=== PATIENT | female | born 1950 | race Caucasian/White ===

== ENCOUNTER 2023-04-09 16:58 | Emergency (ER) | payer OTHER ==
[2023-04-09 17:11] VITALS: BP 136/92; PULSE 73; RESP 18; TEMP 98.2; BMI 17.2
[2023-04-09] MEDS ORDERED: SODIUM CHLORIDE 1,000 ML IV ONE (17:36)
[2023-04-09] MEDS ORDERED: PANTOPRAZOLE SODIUM 40 MG VIAL ONE (17:47)
[2023-04-09] MEDS ORDERED: ACETAMINOPHEN INJECTION 100 ML IVPB ONE (17:48)
[2023-04-09 17:56] LABS: HEMATOCRIT 41.8 % (32.4-45.2); HEMOGLOBIN 14.1 G/dL (10.7-15.3); MCH 34.4 pg (25.7-33.7); MCHC 33.6 g/dl (32.0-36.0); MEAN CELL VOLUME 102.2 fl (80-96); MEAN PLT VOLUME 7.6 fl (7.5-11.1); PLATELET COUNT 393.6 10^3/uL (134-434); RBC 4.09 10^6/uL (3.60-5.2); RDW 12.7 % (11.6-15.6); WHITE BLOOD COUNT 12.5 10^3/uL (4.0-10.8)
[2023-04-09 18:06] LABS: BLOOD UREA NITROGEN 9.2 mg/dl (7-18); CALCIUM 9.7 mg/dl (8.5-10.1); CREATININE 0.7 mg/dl (0.6-1.3); SGOT/AST 28.7 U/L (15-37); SGPT/ALT 5.8 U/L (7-52); TOT PROT 6.8 g/dl (6.4-8.2)
[2023-04-09 18:20] LABS: ANISOCYTOSIS 1+; MACROCYTOSIS 1+
[2023-04-09 18:21] LABS: PLATELET ESTIMATE ADEQUATE
[2023-04-09 19:38] LABS: BILIRUBIN,DIRECT 0.1 mg/dL (0.0-0.2)
[2023-04-09 19:40] LABS: BILIRUBIN,TOTAL 0.3 mg/dL (0.2-1)
[2023-04-09] MEDS ORDERED: MAGNESIUM OXIDE 400 MG TABLET (FP) PO ONE (21:10)
[2023-04-09] MEDS ORDERED: metroNIDAZOLE 500 MG TABLET PO ONE (21:26)
[2023-04-09] MEDS ORDERED: metroNIDAZOLE 250 MG TABLET ONE (21:32)
== END 2023-04-09 21:43 | disposition home or self-care (01) ==
LOC: FER 16:58
PROC: 3E0337Z Introduction of Electrolytic and Water Balance Substance into Peripheral Vein, Percutaneous Approach (ICD-10-PCS; principal; 2023-04-09)
DX: R14.0 Abdominal distension (gaseous) (principal); R10.84 Generalized abdominal pain; R11.10 Vomiting, unspecified; R19.7 Diarrhea, unspecified
CPT/HCPCS: 36415; 74177-TC; 80053; 81003; 82248; 83690; 83735; 85025; 99285-25; Q9967

== ENCOUNTER 2024-01-02 14:12 | Inpatient (IN) | payer OTHER ==
[2024-01-02] MEDS ORDERED: ACETAMINOPHEN INJECTION 100 ML IVPB ONE ×2 (15:09→20:31)
[2024-01-02] MEDS: ACETAMINOPHEN 1000 MG/100 ML BAG IVPB ONE ×2 (15:21→20:36)
[2024-01-02] MEDS: SODIUM CHLORIDE 0.9% 500 ML INFUS.BAG IV ONE (15:21)
[2024-01-02 15:39] LABS: HEMATOCRIT 36.7 % (32.4-45.2); MCH 32.4 pg (25.7-33.7); MCHC 32.6 g/dl (32.0-36.0); MEAN CELL VOLUME 99.4 fl (80-96); PLATELET COUNT 453.6 10^3/uL (134-434); RBC 3.69 10^6/uL (3.60-5.2); WHITE BLOOD COUNT 19.6 10^3/uL (4.0-10.8)
[2024-01-02 15:45] LABS: PLATELET ESTIMATE SLT INCREASE
[2024-01-02 15:50] LABS: ALBUMIN 3.2 g/dl (3.4-5.0); BILIRUBIN,TOTAL 0.3 mg/dl (0.2-1); CALCIUM 9.3 mg/dl (8.5-10.1); CREATININE 0.6 mg/dl (0.6-1.3); POTASSIUM 4.3 mmol/L (3.5-5.1); TOT PROT 6.1 g/dl (6.4-8.2)
[2024-01-02] MEDS ORDERED: PIPERACILLIN/TAZOBACTAM 3.375 GM VIAL IVPB ONE (17:56)
[2024-01-02 17:59] LABS: INR 1.09 (0.83-1.09); PROTHROMBIN TIME (PATIENT) 12.4 SEC (9.7-13.0)
[2024-01-02 18:02] LABS: ACTIVATED PTT 27.1 SECONDS (25.2-36.5)
[2024-01-02] MEDS: PIPERACILLIN/TAZOB 3.375 GM 3.375 GM in DEXTROSE 5%-WATER - 50 ML IVPB ONE (18:18)
[2024-01-02] MEDS: LACTATED RINGERS SOLUTION 1,000 ML/1,000 ML INFUS.BAG IV SCH (18:18)
[2024-01-02] MEDS ORDERED: morphine SULFATE 4 MG/ML VIAL ONE (19:14)
[2024-01-02] MEDS: morphine CARPU-JECT 2 MG/1 ML DISP.SYRIN IVPUSH ONE ×2 (19:21→19:34)
[2024-01-03] MEDS: ACETAMINOPHEN 1000 MG/100 ML BAG IVPB SCH (00:15)
[2024-01-03 01:48] VITALS: BMI 16.7
[2024-01-03] MEDS ORDERED: ACETAMINOPHEN 325 MG TABLET (FP) PO PRN (02:06)
[2024-01-03] MEDS: LACTATED RINGERS SOLUTION 1,000 ML/1,000 ML INFUS.BAG IV SCH (02:19)
[2024-01-03] MEDS: morphine SULFATE 4 MG/ML VIAL IVPUSH ONE (02:58)
[2024-01-03] MEDS: PIPERACILLIN/TAZOB 3.375 GM 3.375 GM in DEXTROSE 5%-WATER - 50 ML IVPB SCH ×2 (03:25→18:02)
[2024-01-03] MEDS ORDERED: ACETAMINOPHEN 1000 MG/100 ML BAG IVPB PRN ×2 (05:52→11:16)
[2024-01-03] MEDS ORDERED: ONDANSETRON 4 MG/2 ML VIAL IVPUSH PRN (05:53)
[2024-01-03 09:07] LABS: HEMATOCRIT 37.9 % (32.4-45.2); MCH 33.4 pg (25.7-33.7); MCHC 34.3 g/dl (32.0-36.0); MEAN CELL VOLUME 97.6 fl (80-96); MEAN PLT VOLUME 8.3 fl (7.5-11.1); PLATELET COUNT 475 10^3/uL (134-434); RBC 3.88 M/mm3 (3.60-5.2); RDW 11.9 % (11.6-15.6); WHITE BLOOD COUNT 10.7 K/mm3 (4.0-10.0)
[2024-01-03 09:16] LABS: POTASSIUM 4.2 mmol/L (3.5-5.1)
[2024-01-03 09:20] LABS: CALCIUM 8.8 mg/dL (8.5-10.1)
[2024-01-03 09:21] LABS: MAGNESIUM 1.4 mg/dL (1.8-2.4)
[2024-01-03 09:24] LABS: CREATININE 1.2 mg/dL (0.55-1.3)
[2024-01-03 09:25] LABS: TOT PROT 4.9 g/dl (6.4-8.2)
[2024-01-03 09:26] LABS: BILIRUBIN,TOTAL 0.5 mg/dL (0.2-1)
[2024-01-03] MEDS ORDERED: FENTANYL CITRATE/PF 50 MCG/ML VIAL ONE (10:28)
[2024-01-03] MEDS ORDERED: MIDAZOLAM HCL 2 MG/2 ML SINGLE DOSE VIAL ONE (10:28)
[2024-01-03] MEDS: MAGNESIUM 2GM/50ML STERILE WATER IVPB IVPB ONE (13:21)
[2024-01-03] MEDS: SODIUM CHLORIDE 1,000 ML IV STA (14:06)
[2024-01-03] MEDS: SODIUM CHLORIDE 500 ML IV STA (16:09)
[2024-01-04 08:49] LABS: HEMATOCRIT 33.2 % (32.4-45.2); HEMOGLOBIN 11.3 GM/dL (10.7-15.3); MCH 32.6 pg (25.7-33.7); MCHC 33.9 g/dl (32.0-36.0); MEAN CELL VOLUME 96.3 fl (80-96); MEAN PLT VOLUME 8.3 fl (7.5-11.1); PLATELET COUNT 386 10^3/uL (134-434); RBC 3.45 M/mm3 (3.60-5.2); RDW 12.1 % (11.6-15.6)
[2024-01-04 08:54] LABS: WHITE BLOOD COUNT 31.5 K/mm3 (4.0-10.0)
[2024-01-04 09:09] LABS: CHLORIDE 99 mmol/L (98-107); POTASSIUM 4.3 mmol/L (3.5-5.1); SODIUM 136 mmol/L (136-145)
[2024-01-04 09:11] LABS: CHLORIDE 100 mmol/L (98-107); POTASSIUM 4.3 mmol/L (3.5-5.1); SODIUM 136 mmol/L (136-145)
[2024-01-04 09:26] LABS: CALCIUM 7.6 mg/dL (8.5-10.1)
[2024-01-04 09:27] LABS: ANION GAP 12 mmol/L (4-13); BLOOD UREA NITROGEN 29.5 mg/dL (7-18); CO2 25 mmol/L (21-32)
[2024-01-04 09:30] LABS: ANION GAP 11 mmol/L (4-13); BLOOD UREA NITROGEN 28.2 mg/dL (7-18); CALCIUM 7.7 mg/dL (8.5-10.1); CO2 25 mmol/L (21-32); CREATININE 1.1 mg/dL (0.55-1.3); MAGNESIUM 1.9 mg/dL (1.8-2.4)
[2024-01-04 09:31] LABS: GLUCOSE,RANDOM 49 mg/dL (74-106)
[2024-01-04 09:33] LABS: CREATININE 1.1 mg/dL (0.55-1.3); PHOSPHOROUS 6.5 mg/dL (2.5-4.9); SGOT/AST 49 U/L (15-37); SGPT/ALT 25 U/L (13-61)
[2024-01-04 09:34] LABS: BILIRUBIN,TOTAL 0.4 mg/dL (0.2-1); TOT PROT 4.2 g/dl (6.4-8.2)
[2024-01-04 09:36] LABS: ALK PHOS 76 U/L (45-117)
[2024-01-04 09:59] LABS: ALBUMIN 1.6 g/dl (3.4-5.0); GLUCOSE,RANDOM 44 mg/dL (74-106)
[2024-01-04 10:10] LABS: ANISOCYTOSIS 0; HELMET CELLS 0; HOWELL-JOLLY BODIES 0; MACROCYTOSIS 0; OVALOCYTE 0; ROULEAU 0; SICKELED CELLS 0; TARGET CELLS 0; TEAR DROP CELLS 0; TOXIC GRANULATION 0
[2024-01-04] MEDS ORDERED: PIPERACILLIN/TAZOB 3.375 GM 3.375 GM in DEXTROSE 5%-WATER - 50 ML IVPB SCH (11:30)
[2024-01-04] MEDS: LACTATED RINGERS SOLUTION 1,000 ML/1,000 ML INFUS.BAG IV SCH (11:35)
[2024-01-04] MEDS: DEXTROSE 50%-WATER 25 GM/50 ML DISP.SYRIN IVPUSH ONE (11:36)
[2024-01-04] MEDS: PIPERACILLIN/TAZOB 3.375 GM 3.375 GM in DEXTROSE 5%-WATER - 50 ML IVPB SCH (12:09)
[2024-01-04 17:30] LABS: BASO % 0.1 % (0-2.0); HEMATOCRIT 26.8 % (32.4-45.2); HEMOGLOBIN 8.8 GM/dL (10.7-15.3); MCH 32.6 pg (25.7-33.7); MCHC 32.8 g/dl (32.0-36.0); MEAN CELL VOLUME 99.4 fl (80-96); MEAN PLT VOLUME 7.8 fl (7.5-11.1); MONO % 0.8 % (3.8-10.2); NEUT % 96.1 % (42.8-82.8); PLATELET COUNT 326 10^3/uL (134-434); RDW 12.4 % (11.6-15.6); WHITE BLOOD COUNT 24.2 K/mm3 (4.0-10.0)
[2024-01-04] MEDS: AMINO ACIDS 4.25%/D5W 1,000 ML IV SCH (17:32)
[2024-01-04 18:33] LABS: ANISOCYTOSIS 0; MACROCYTOSIS 0; OVALOCYTE 1+
[2024-01-05] MEDS ORDERED: FENTANYL CITRATE/PF 50 MCG/ML VIAL ONE (06:42)
[2024-01-05] MEDS ORDERED: MIDAZOLAM HCL 2 MG/2 ML SINGLE DOSE VIAL ONE (06:42)
[2024-01-05] MEDS: FENTANYL CITRATE/PF 50 MCG/ML VIAL IVPUSH ONE (07:25)
[2024-01-05] MEDS: MIDAZOLAM HCL 2 MG/2 ML SINGLE DOSE VIAL IVPUSH ONE (07:25)
[2024-01-05 08:09] LABS: HEMATOCRIT 34.3 % (32.4-45.2); HEMOGLOBIN 11.6 GM/dL (10.7-15.3); INR 1.02 (0.83-1.09); MCH 32.2 pg (25.7-33.7); MCHC 33.8 g/dl (32.0-36.0); MEAN CELL VOLUME 95.2 fl (80-96); MEAN PLT VOLUME 8.6 fl (7.5-11.1); PLATELET COUNT 427 10^3/uL (134-434); PROTHROMBIN TIME (PATIENT) 11.5 SEC (9.7-13.0); RDW 12.1 % (11.6-15.6)
[2024-01-05 08:12] LABS: ACTIVATED PTT 30.7 SECONDS (25.2-36.5); POTASSIUM 3.6 mmol/L (3.5-5.1)
[2024-01-05 08:22] LABS: BLOOD UREA NITROGEN 32.6 mg/dL (7-18); CALCIUM 8.1 mg/dL (8.5-10.1)
[2024-01-05 08:23] LABS: ALBUMIN 1.8 g/dl (3.4-5.0); MAGNESIUM 1.9 mg/dL (1.8-2.4)
[2024-01-05 08:25] LABS: PHOSPHOROUS 3.1 mg/dL (2.5-4.9)
[2024-01-05 08:26] LABS: CREATININE 0.7 mg/dL (0.55-1.3)
[2024-01-05 08:27] LABS: BILIRUBIN,TOTAL 0.5 mg/dL (0.2-1)
[2024-01-05 08:34] LABS: WHITE BLOOD COUNT 34.2 K/mm3 (4.0-10.0)
[2024-01-05 10:11] LABS: ANISOCYTOSIS 0; HELMET CELLS 0; HOWELL-JOLLY BODIES 0; MACROCYTOSIS 0; OVALOCYTE 0; ROULEAU 0; SICKELED CELLS 0; TARGET CELLS 0; TEAR DROP CELLS 0; TOXIC GRANULATION 0
[2024-01-05] MEDS: NORMAL SALINE FLUSH 0.9% 10 ML SYRINGE IVPUSH SCH (10:52)
[2024-01-05 17:20] LABS: HEMATOCRIT 31.9 % (32.4-45.2); HEMOGLOBIN 10.7 GM/dL (10.7-15.3); MCH 32.4 pg (25.7-33.7); MCHC 33.7 g/dl (32.0-36.0); MEAN CELL VOLUME 96.1 fl (80-96); MEAN PLT VOLUME 7.7 fl (7.5-11.1); PLATELET COUNT 370 10^3/uL (134-434); RBC 3.31 M/mm3 (3.60-5.2); WHITE BLOOD COUNT 29.3 K/mm3 (4.0-10.0)
[2024-01-05 17:50] LABS: ANISOCYTOSIS 0; MACROCYTOSIS 0; TARGET CELLS 1+
[2024-01-05 17:56] LABS: EPI CELLS 11 /uL (0-25.1); HYALINE CASTS 0 /uL (0-3.1); PH,URINE 6.5 (5.0-8.0); URINE APPEARANCE CLEAR; URINE BACTERIA 6 /uL (0-1359); URINE BILIRUBIN NEGATIVE (NEGATIVE); URINE COLOR YELLOW; URINE GLUCOSE (UA) NEGATIVE (NEGATIVE); URINE KETONE NEGATIVE (NEGATIVE); URINE LEUK ESTERASE NEGATIVE (NEGATIVE); URINE NITRITE NEGATIVE (NEGATIVE); URINE PROTEIN 1+ (NEGATIVE); URINE RBC 46 /uL (0-23.9); URINE UROBILINOGEN 0.2 mg/dL (0.2-1.0); URINE WBC 9 /uL (0-25.8)
[2024-01-05] MEDS: FAT EMULSION/OLIVE/SOY/PHOSPHO 250 ML IV SCH (21:43)
[2024-01-05] MEDS ORDERED: FAT EMULSION/OLIVE/SOY (CLINOLIPID) 250 ML EMULSION IV SCH (22:00)
[2024-01-06] MEDS: MELATONIN 5 MG TABLETS PO ONE (02:39)
[2024-01-06 09:22] LABS: HEMOGLOBIN 10.4 GM/dL (10.7-15.3); MCH 33.3 pg (25.7-33.7); MCHC 34.5 g/dl (32.0-36.0); MEAN CELL VOLUME 96.4 fl (80-96); MEAN PLT VOLUME 8.1 fl (7.5-11.1); PLATELET COUNT 359 10^3/uL (134-434); RBC 3.12 M/mm3 (3.60-5.2); RDW 12.2 % (11.6-15.6); WHITE BLOOD COUNT 22.9 K/mm3 (4.0-10.0)
[2024-01-06] MEDS: AMINO ACIDS 4.25%/D5W 2,000 ML IV SCH (09:22)
[2024-01-06 09:45] LABS: POTASSIUM 3.1 mmol/L (3.5-5.1)
[2024-01-06 09:54] LABS: BLOOD UREA NITROGEN 19.8 mg/dL (7-18); CALCIUM 7.3 mg/dL (8.5-10.1)
[2024-01-06 09:58] LABS: BILIRUBIN,TOTAL 0.6 mg/dL (0.2-1); CREATININE 0.4 mg/dL (0.55-1.3); TOT PROT 4.1 g/dl (6.4-8.2)
[2024-01-06 10:01] LABS: ALBUMIN 1.4 g/dl (3.4-5.0)
[2024-01-06] MEDS: POTASSIUM CHLORIDE ORAL LIQUID 20 MEQ/15 ML PO ONE (11:09)
[2024-01-07 07:54] LABS: HEMATOCRIT 30.8 % (32.4-45.2); HEMOGLOBIN 10.6 GM/dL (10.7-15.3); MCH 33.4 pg (25.7-33.7); MCHC 34.4 g/dl (32.0-36.0); PLATELET COUNT 333 10^3/uL (134-434); RBC 3.17 M/mm3 (3.60-5.2); RDW 12.2 % (11.6-15.6); WHITE BLOOD COUNT 14.3 K/mm3 (4.0-10.0)
[2024-01-07 08:04] LABS: CHLORIDE 99 mmol/L (98-107); SODIUM 134 mmol/L (136-145)
[2024-01-07 08:07] LABS: ALBUMIN 1.4 g/dl (3.4-5.0); BLOOD UREA NITROGEN 14.7 mg/dL (7-18); CALCIUM 7.4 mg/dL (8.5-10.1); CO2 28 mmol/L (21-32); GLUCOSE,RANDOM 119 mg/dL (74-106); MAGNESIUM 1.4 mg/dL (1.8-2.4)
[2024-01-07 08:10] LABS: CREATININE 0.4 mg/dL (0.55-1.3); PHOSPHOROUS 2.5 mg/dL (2.5-4.9); SGOT/AST 52 U/L (15-37); SGPT/ALT 19 U/L (13-61)
[2024-01-07 08:12] LABS: BILIRUBIN,TOTAL 0.9 mg/dL (0.2-1)
[2024-01-07 08:26] LABS: ALK PHOS 173 U/L (45-117); ANION GAP 7 mmol/L (4-13); POTASSIUM 2.8 mmol/L (3.5-5.1)
[2024-01-07] MEDS: MAGNESIUM SULF 50% (8.12 MEQ/2 ML-1 GM VIAL) IVPB ONE ×2 (10:13→17:08)
[2024-01-07] MEDS: POTASSIUM CHLORIDE TABS 20 MEQ TABLET.ER (FP) PO SCH (14:14)
[2024-01-07] MEDS: POTASSIUM CHLORIDE ORAL LIQUID 20 MEQ/15 ML PO ONE ×3 (17:09)
[2024-01-07] MEDS: MELATONIN 5 MG TABLETS PO PRN (21:46)
[2024-01-08 07:54] LABS: HEMATOCRIT 31.6 % (32.4-45.2); HEMOGLOBIN 10.9 GM/dL (10.7-15.3); MCH 33.1 pg (25.7-33.7); MCHC 34.6 g/dl (32.0-36.0); MEAN CELL VOLUME 95.5 fl (80-96); PLATELET COUNT 372 10^3/uL (134-434); RBC 3.31 M/mm3 (3.60-5.2); RDW 12.4 % (11.6-15.6); WHITE BLOOD COUNT 21.5 K/mm3 (4.0-10.0)
[2024-01-08 08:00] LABS: POTASSIUM 3.4 mmol/L (3.5-5.1)
[2024-01-08 08:12] LABS: CALCIUM 7.6 mg/dL (8.5-10.1)
[2024-01-08 08:13] LABS: ALBUMIN 1.6 g/dl (3.4-5.0); BLOOD UREA NITROGEN 12.8 mg/dL (7-18)
[2024-01-08 08:16] LABS: CREATININE 0.3 mg/dL (0.55-1.3)
[2024-01-08 08:18] LABS: BILIRUBIN,TOTAL 0.5 mg/dL (0.2-1); TOT PROT 4.4 g/dl (6.4-8.2)
[2024-01-08] MEDS: POTASSIUM CHLORIDE TABS 20 MEQ TABLET.ER (FP) PO SCH (21:25)
[2024-01-09] MEDS ORDERED: morphine CARPU-JECT 2 MG/1 ML DISP.SYRIN IM ONE (01:32)
[2024-01-09 11:57] LABS: HEMATOCRIT 34.2 % (32.4-45.2); HEMOGLOBIN 11.3 GM/dL (10.7-15.3); MCH 32.2 pg (25.7-33.7); MCHC 33.1 g/dl (32.0-36.0); MEAN CELL VOLUME 97.3 fl (80-96); MEAN PLT VOLUME 7.9 fl (7.5-11.1); PLATELET COUNT 436 10^3/uL (134-434); RBC 3.51 M/mm3 (3.60-5.2); RDW 12.1 % (11.6-15.6); WHITE BLOOD COUNT 25.9 K/mm3 (4.0-10.0)
[2024-01-09 12:20] LABS: POTASSIUM 3.2 mmol/L (3.5-5.1)
[2024-01-09 12:23] LABS: ALBUMIN 1.8 g/dl (3.4-5.0)
[2024-01-09 12:24] LABS: MAGNESIUM 1.5 mg/dL (1.8-2.4)
[2024-01-09 12:26] LABS: CREATININE 0.4 mg/dL (0.55-1.3)
[2024-01-09 12:28] LABS: TOT PROT 4.9 g/dl (6.4-8.2)
[2024-01-09] MEDS: MAGNESIUM SULF 50% (8.12 MEQ/2 ML-1 GM VIAL) IVPB ONE (17:15)
[2024-01-09] MEDS: FUROSEMIDE 40 MG/4 ML INJECTABLE VIAL IVPUSH ONE (17:15)
[2024-01-09] MEDS ORDERED: MEROPENEM 1 GM in DEXTROSE 5%-WATER 100 ML IVPB SCH (18:00)
[2024-01-09] MEDS ORDERED: ACETAMINOPHEN 1000 MG/100 ML BAG IVPB PRN (18:42)
[2024-01-09] MEDS: MEROPENEM 1 GM in DEXTROSE 5%-WATER 100 ML IVPB SCH (19:26)
[2024-01-09] MEDS: FLUCONAZOLE 100 MG/NS 50 ML IVPB SCH (21:29)
[2024-01-10] MEDS: FLUCONAZOLE 100 MG/NS 50 ML IVPB SCH (07:53)
[2024-01-10 09:01] LABS: HEMATOCRIT 31.2 % (32.4-45.2); HEMOGLOBIN 10.5 GM/dL (10.7-15.3); MCH 32.2 pg (25.7-33.7); MCHC 33.7 g/dl (32.0-36.0); MEAN CELL VOLUME 95.4 fl (80-96); MEAN PLT VOLUME 8.3 fl (7.5-11.1); PLATELET COUNT 477 10^3/uL (134-434); RBC 3.27 M/mm3 (3.60-5.2); RDW 12.5 % (11.6-15.6); WHITE BLOOD COUNT 19.6 K/mm3 (4.0-10.0)
[2024-01-10 09:17] LABS: POTASSIUM 3.3 mmol/L (3.5-5.1)
[2024-01-10 09:22] LABS: CALCIUM 7.7 mg/dL (8.5-10.1)
[2024-01-10 09:23] LABS: ALBUMIN 1.7 g/dl (3.4-5.0); BLOOD UREA NITROGEN 14.2 mg/dL (7-18); MAGNESIUM 1.6 mg/dL (1.8-2.4)
[2024-01-10 09:27] LABS: BILIRUBIN,TOTAL 0.3 mg/dL (0.2-1); CREATININE 0.3 mg/dL (0.55-1.3); PHOSPHOROUS 3.2 mg/dL (2.5-4.9); TOT PROT 4.4 g/dl (6.4-8.2)
[2024-01-10] MEDS: MAGNESIUM SULF 50% (8.12 MEQ/2 ML-1 GM VIAL) IVPB ONE (11:34)
[2024-01-10] MEDS: POTASSIUM CHLORIDE ORAL LIQUID 20 MEQ/15 ML PO ONE (11:34)
[2024-01-10] MEDS ORDERED: FENTANYL CITRATE/PF 50 MCG/ML VIAL ONE (13:00)
[2024-01-10] MEDS: FENTANYL CITRATE/PF 50 MCG/ML VIAL IVPUSH ONE (13:30)
[2024-01-10] MEDS: AMINO ACIDS/PROTEIN HYDROLYS 30 ML LIQUID.PKT PO SCH (16:57)
[2024-01-10] MEDS: FUROSEMIDE 40 MG TABLET (FP) PO ONE (16:59)
[2024-01-10] MEDS: HEPARIN NA (PORCINE) 5,000 UNITS/ML 1ML VIAL SQ SCH (21:45)
[2024-01-10] MEDS: POTASSIUM CHLORIDE TABS 20 MEQ TABLET.ER (FP) PO SCH (21:45)
[2024-01-11 10:16] LABS: HEMATOCRIT 31.7 % (32.4-45.2); HEMOGLOBIN 10.7 GM/dL (10.7-15.3); MCH 32.4 pg (25.7-33.7); MCHC 33.8 g/dl (32.0-36.0); MEAN CELL VOLUME 95.7 fl (80-96); MEAN PLT VOLUME 8.5 fl (7.5-11.1); PLATELET COUNT 573 10^3/uL (134-434); RBC 3.32 M/mm3 (3.60-5.2); RDW 12.7 % (11.6-15.6); WHITE BLOOD COUNT 23.7 K/mm3 (4.0-10.0)
[2024-01-11 10:37] LABS: POTASSIUM 3.5 mmol/L (3.5-5.1)
[2024-01-11 10:41] LABS: CALCIUM 7.9 mg/dL (8.5-10.1)
[2024-01-11 10:42] LABS: BLOOD UREA NITROGEN 17.5 mg/dL (7-18); MAGNESIUM 1.4 mg/dL (1.8-2.4)
[2024-01-11 10:45] LABS: CREATININE 0.4 mg/dL (0.55-1.3); PHOSPHOROUS 2.8 mg/dL (2.5-4.9)
[2024-01-11 10:46] LABS: BILIRUBIN,TOTAL 0.5 mg/dL (0.2-1); TOT PROT 5.1 g/dl (6.4-8.2)
[2024-01-11 11:01] LABS: ANISOCYTOSIS 0; MACROCYTOSIS 0
[2024-01-11] MEDS: MAGNESIUM SULF 50% (8.12 MEQ/2 ML-1 GM VIAL) IVPB ONE (17:18)
[2024-01-12 09:56] LABS: HEMATOCRIT 30.4 % (32.4-45.2); HEMOGLOBIN 10.2 GM/dL (10.7-15.3); MCHC 33.5 g/dl (32.0-36.0); MEAN CELL VOLUME 95.3 fl (80-96); MEAN PLT VOLUME 8.5 fl (7.5-11.1); PLATELET COUNT 624 10^3/uL (134-434); RBC 3.19 M/mm3 (3.60-5.2); RDW 12.7 % (11.6-15.6); WHITE BLOOD COUNT 24.5 K/mm3 (4.0-10.0)
[2024-01-12 10:04] LABS: POTASSIUM 4.2 mmol/L (3.5-5.1)
[2024-01-12 10:07] LABS: CALCIUM 7.7 mg/dL (8.5-10.1)
[2024-01-12 10:08] LABS: BLOOD UREA NITROGEN 16.6 mg/dL (7-18); MAGNESIUM 1.6 mg/dL (1.8-2.4)
[2024-01-12 10:11] LABS: CREATININE 0.3 mg/dL (0.55-1.3); PHOSPHOROUS 2.6 mg/dL (2.5-4.9)
[2024-01-12 10:25] LABS: ANISOCYTOSIS 1+; MACROCYTOSIS 1+
[2024-01-13 09:16] LABS: HEMATOCRIT 29.4 % (32.4-45.2); MCH 32.8 pg (25.7-33.7); MCHC 34.1 g/dl (32.0-36.0); MEAN CELL VOLUME 96.3 fl (80-96); MEAN PLT VOLUME 8.3 fl (7.5-11.1); PLATELET COUNT 651 10^3/uL (134-434); RBC 3.05 M/mm3 (3.60-5.2); RDW 12.6 % (11.6-15.6); WHITE BLOOD COUNT 22.2 K/mm3 (4.0-10.0)
[2024-01-13] MEDS: MAGNESIUM 1GM/D5W - 1 GM/100 ML IVPB IVPB ONE (10:03)
[2024-01-13 10:11] LABS: ANISOCYTOSIS 1+; MACROCYTOSIS 0
[2024-01-13 11:49] LABS: IRON SERUM 45 ug/dL (50-175); TOTAL IRON BINDING CAPACITY 218 ug/dL (250-450)
[2024-01-14 08:42] LABS: HEMATOCRIT 28.3 % (32.4-45.2); HEMOGLOBIN 9.5 GM/dL (10.7-15.3); MCH 32.3 pg (25.7-33.7); MCHC 33.4 g/dl (32.0-36.0); MEAN CELL VOLUME 96.5 fl (80-96); MEAN PLT VOLUME 8.1 fl (7.5-11.1); PLATELET COUNT 757 10^3/uL (134-434); RBC 2.93 M/mm3 (3.60-5.2); RDW 12.8 % (11.6-15.6); WHITE BLOOD COUNT 18.1 K/mm3 (4.0-10.0)
[2024-01-14 08:58] LABS: POTASSIUM 4.5 mmol/L (3.5-5.1)
[2024-01-14 09:11] LABS: BLOOD UREA NITROGEN 14.6 mg/dL (7-18)
[2024-01-14 09:12] LABS: CALCIUM 8.7 mg/dL (8.5-10.1); MAGNESIUM 1.8 mg/dL (1.8-2.4); PHOSPHOROUS 3.7 mg/dL (2.5-4.9)
[2024-01-14 09:14] LABS: BILIRUBIN,TOTAL 0.5 mg/dL (0.2-1); CREATININE 0.3 mg/dL (0.55-1.3); TOT PROT 5.3 g/dl (6.4-8.2)
[2024-01-14] MEDS: CASPOFUNGIN ACETATE 70 MG in SODIUM CHLORIDE 250 ML IVPB ONE (10:31)
[2024-01-14] MEDS: SIMETHICONE 80 MG TAB.CHEW (FP) PO ONE (15:07)
[2024-01-15 11:02] LABS: HEMATOCRIT 31.3 % (32.4-45.2); HEMOGLOBIN 10.6 GM/dL (10.7-15.3); MCH 32.4 pg (25.7-33.7); MCHC 33.7 g/dl (32.0-36.0); MEAN CELL VOLUME 96.2 fl (80-96); MEAN PLT VOLUME 8.3 fl (7.5-11.1); PLATELET COUNT 816 10^3/uL (134-434); RBC 3.26 M/mm3 (3.60-5.2); RDW 12.6 % (11.6-15.6); WHITE BLOOD COUNT 17.1 K/mm3 (4.0-10.0)
[2024-01-15] MEDS: CASPOFUNGIN ACETATE 50 MG in SODIUM CHLORIDE 250 ML IVPB SCH (11:03)
[2024-01-15 11:17] LABS: POTASSIUM 4.1 mmol/L (3.5-5.1)
[2024-01-15 11:20] LABS: ALBUMIN 2.4 g/dl (3.4-5.0); CALCIUM 9.3 mg/dL (8.5-10.1)
[2024-01-15 11:22] LABS: BLOOD UREA NITROGEN 16.2 mg/dL (7-18)
[2024-01-15 11:24] LABS: CREATININE 0.5 mg/dL (0.55-1.3)
[2024-01-15 11:26] LABS: BILIRUBIN,TOTAL 0.6 mg/dL (0.2-1); TOT PROT 6.3 g/dl (6.4-8.2)
[2024-01-15] MEDS: SIMETHICONE 80 MG TAB.CHEW (FP) PO PRN (15:10)
[2024-01-16 08:50] LABS: BASO % 0.6 % (0-2.0); EOS % 0.5 % (0-4.5); HEMATOCRIT 27.7 % (32.4-45.2); HEMOGLOBIN 9.2 GM/dL (10.7-15.3); LYMPH % 9.9 % (8-40); MCH 31.8 pg (25.7-33.7); MCHC 33.4 g/dl (32.0-36.0); MEAN CELL VOLUME 95.4 fl (80-96); MEAN PLT VOLUME 8.3 fl (7.5-11.1); MONO % 8.2 % (3.8-10.2); NEUT % 80.8 % (42.8-82.8); PLATELET COUNT 790 10^3/uL (134-434); RBC 2.91 M/mm3 (3.60-5.2); RDW 12.6 % (11.6-15.6); WHITE BLOOD COUNT 13.8 K/mm3 (4.0-10.0)
[2024-01-16 08:54] LABS: POTASSIUM 3.9 mmol/L (3.5-5.1)
[2024-01-16 08:56] LABS: CALCIUM 8.8 mg/dL (8.5-10.1)
[2024-01-16 08:58] LABS: ALBUMIN 2.1 g/dl (3.4-5.0); BLOOD UREA NITROGEN 15.7 mg/dL (7-18); MAGNESIUM 1.6 mg/dL (1.8-2.4)
[2024-01-16 09:01] LABS: CREATININE 0.3 mg/dL (0.55-1.3); PHOSPHOROUS 3.2 mg/dL (2.5-4.9); TOT PROT 5.8 g/dl (6.4-8.2)
[2024-01-16 09:05] LABS: BILIRUBIN,TOTAL 0.6 mg/dL (0.2-1)
[2024-01-17 09:50] LABS: HEMATOCRIT 28.1 % (32.4-45.2); HEMOGLOBIN 9.4 GM/dL (10.7-15.3); MCH 32.3 pg (25.7-33.7); MCHC 33.4 g/dl (32.0-36.0); MEAN CELL VOLUME 96.5 fl (80-96); MEAN PLT VOLUME 8.2 fl (7.5-11.1); PLATELET COUNT 755 10^3/uL (134-434); RBC 2.92 M/mm3 (3.60-5.2); RDW 12.5 % (11.6-15.6); WHITE BLOOD COUNT 11.2 K/mm3 (4.0-10.0)
[2024-01-17 10:04] LABS: POTASSIUM 4.3 mmol/L (3.5-5.1)
[2024-01-17 10:16] LABS: ALBUMIN 2.2 g/dl (3.4-5.0); BLOOD UREA NITROGEN 16.3 mg/dL (7-18)
[2024-01-17 10:20] LABS: CREATININE 0.3 mg/dL (0.55-1.3)
[2024-01-17 10:21] LABS: BILIRUBIN,TOTAL 0.5 mg/dL (0.2-1); TOT PROT 6.1 g/dl (6.4-8.2)
[2024-01-17] MEDS ORDERED: FENTANYL CITRATE/PF 50 MCG/ML VIAL ONE (11:34)
[2024-01-17] MEDS: FENTANYL CITRATE/PF 50 MCG/ML VIAL IVPUSH ONE (13:38)
[2024-01-17] MEDS: NORMAL SALINE FLUSH 0.9% 5 ML SYRINGE IVPUSH SCH (14:46)
[2024-01-17] MEDS: SODIUM CHLORIDE 500 ML IV ONE (14:47)
[2024-01-17] MEDS: MEROPENEM 1 GM in DEXTROSE 5%-WATER 100 ML IVPB SCH (17:27)
[2024-01-18 08:05] LABS: HEMATOCRIT 26.9 % (32.4-45.2); HEMOGLOBIN 8.8 GM/dL (10.7-15.3); MCH 31.7 pg (25.7-33.7); MCHC 32.8 g/dl (32.0-36.0); MEAN CELL VOLUME 96.7 fl (80-96); MEAN PLT VOLUME 7.8 fl (7.5-11.1); PLATELET COUNT 599 10^3/uL (134-434); RBC 2.78 M/mm3 (3.60-5.2); RDW 12.5 % (11.6-15.6); WHITE BLOOD COUNT 11.8 K/mm3 (4.0-10.0)
[2024-01-18 08:24] LABS: POTASSIUM 3.5 mmol/L (3.5-5.1)
[2024-01-18 08:33] LABS: CALCIUM 8.5 mg/dL (8.5-10.1)
[2024-01-18 08:34] LABS: BLOOD UREA NITROGEN 13.7 mg/dL (7-18)
[2024-01-18 08:37] LABS: CREATININE 0.3 mg/dL (0.55-1.3)
[2024-01-18 08:38] LABS: BILIRUBIN,TOTAL 0.6 mg/dL (0.2-1); TOT PROT 5.7 g/dl (6.4-8.2)
[2024-01-18] MEDS: ERTAPENEM SODIUM 1 GM in SODIUM CHLORIDE 50 ML IVPB SCH (09:48)
[2024-01-19 09:32] LABS: BASO % 1.1 % (0-2.0); EOS % 0.3 % (0-4.5); HEMATOCRIT 28.4 % (32.4-45.2); HEMOGLOBIN 9.5 GM/dL (10.7-15.3); LYMPH % 17.2 % (8-40); MCH 32.2 pg (25.7-33.7); MCHC 33.5 g/dl (32.0-36.0); MEAN CELL VOLUME 96.1 fl (80-96); MEAN PLT VOLUME 8.3 fl (7.5-11.1); MONO % 11.8 % (3.8-10.2); NEUT % 69.6 % (42.8-82.8); PLATELET COUNT 550 10^3/uL (134-434); RBC 2.96 M/mm3 (3.60-5.2); RDW 12.6 % (11.6-15.6); WHITE BLOOD COUNT 10.2 K/mm3 (4.0-10.0)
[2024-01-19 09:50] LABS: POTASSIUM 3.3 mmol/L (3.5-5.1)
[2024-01-19 09:55] LABS: BLOOD UREA NITROGEN 12.4 mg/dL (7-18)
[2024-01-19 09:56] LABS: CALCIUM 8.8 mg/dL (8.5-10.1)
[2024-01-19 09:58] LABS: CREATININE 0.3 mg/dL (0.55-1.3)
[2024-01-19] MEDS: POTASSIUM CHLORIDE ORAL LIQUID 20 MEQ/15 ML PO ONE (10:53)
[2024-01-19 14:30] VITALS: RESP 18
[2024-01-20 08:46] VITALS: BP 121/61; PULSE 83; TEMP 98.3
[2024-01-20 08:51] LABS: POTASSIUM 3.5 mmol/L (3.5-5.1)
[2024-01-20 08:54] LABS: CALCIUM 8.9 mg/dL (8.5-10.1)
[2024-01-20 08:55] LABS: ALBUMIN 2.1 g/dl (3.4-5.0); BLOOD UREA NITROGEN 14.1 mg/dL (7-18); MAGNESIUM 1.6 mg/dL (1.8-2.4)
[2024-01-20 08:58] LABS: CREATININE 0.3 mg/dL (0.55-1.3); PHOSPHOROUS 3.4 mg/dL (2.5-4.9)
[2024-01-20 08:59] LABS: TOT PROT 5.6 g/dl (6.4-8.2)
[2024-01-20 09:01] LABS: BILIRUBIN,TOTAL 0.4 mg/dL (0.2-1)
[2024-01-20 09:03] LABS: HEMATOCRIT 26.4 % (32.4-45.2); MCH 32.3 pg (25.7-33.7); MEAN PLT VOLUME 8.1 fl (7.5-11.1); PLATELET COUNT 421 10^3/uL (134-434); RBC 2.78 M/mm3 (3.60-5.2); RDW 12.6 % (11.6-15.6); WHITE BLOOD COUNT 8.2 K/mm3 (4.0-10.0)
[2024-01-20] MEDS: NAPH,MB-DB/K PH,MBDB POWDER PACKET PO ONE (11:29)
== END 2024-01-20 16:54 | disposition home or self-care (01) | DRG 871 ==
LOC: FER 14:12 → J6S 01-03 01:15
PROVIDERS: ADMIT Internal Medicine; ATTEND Internal Medicine
PROC: 0W9J30Z Drainage of Pelvic Cavity with Drainage Device, Percutaneous Approach (ICD-10-PCS; principal; 2024-01-05)
PROC: 0D9W30Z Drainage of Peritoneum with Drainage Device, Percutaneous Approach (ICD-10-PCS; 2024-01-06)
PROC: 0D9W30Z Drainage of Peritoneum with Drainage Device, Percutaneous Approach (ICD-10-PCS; 2024-01-10)
PROC: 02HV33Z Insertion of Infusion Device into Superior Vena Cava, Percutaneous Approach (ICD-10-PCS; 2024-01-17)
PROC: B548ZZA Ultrasonography of Superior Vena Cava, Guidance (ICD-10-PCS; 2024-01-17)
PROC: 0W9J30Z Drainage of Pelvic Cavity with Drainage Device, Percutaneous Approach (ICD-10-PCS; 2024-01-17)
DX: A41.9 Sepsis, unspecified organism (principal); E43 Unspecified severe protein-calorie malnutrition; K65.1 Peritoneal abscess; K57.20 Diverticulitis of large intestine with perforation and abscess without bleeding; N17.9 Acute kidney failure, unspecified; N13.30 Unspecified hydronephrosis; K57.80 Diverticulitis of intestine, part unspecified, with perforation and abscess without bleeding; K56.609 Unspecified intestinal obstruction, unspecified as to partial versus complete obstruction; K56.7 Ileus, unspecified; Z68.1 Body mass index [BMI] 19.9 or less, adult; J90 Pleural effusion, not elsewhere classified; R65.20 Severe sepsis without septic shock; E83.42 Hypomagnesemia; E16.2 Hypoglycemia, unspecified; E87.6 Hypokalemia; E88.09 Other disorders of plasma-protein metabolism, not elsewhere classified; D64.9 Anemia, unspecified; D75.839 Thrombocytosis, unspecified; R60.0 Localized edema
CPT/HCPCS: 36415; 36569; 49406; 49407; 74018-TC-FY; 74019-TC-FY; 74177-TC; 76775-TC; 77012-TC; 80048; 80053; 80061; 81003; 81015; 82570; 82962; 83540; 83550; 83735; 84100; 84300; 84425; 85025; 85027; 85045; 85610; 85730; 86140; 86850; 86900; 86901; 87040; 87070; 87075; 87086; 87102; 87106; 87116; 87186; 87205; 87206; 87210; 88108; 88305-TC; 93005; 93010; 93970-TC; 99291; J0131; J0637; J1644; Q9967

== ENCOUNTER 2024-02-05 15:26 | Inpatient (IN) | payer OTHER ==
[2024-02-05] MEDS ORDERED: ACETAMINOPHEN INJECTION 100 ML IVPB ONE (18:58)
[2024-02-05 19:00] LABS: BASO % 0.5 % (0-2.0); EOS % 0.3 % (0-4.5); HEMATOCRIT 26.8 % (32.4-45.2); HEMOGLOBIN 8.8 GM/dL (10.7-15.3); LYMPH % 20.4 % (8-40); MCH 30.3 pg (25.7-33.7); MEAN CELL VOLUME 91.8 fl (80-96); MEAN PLT VOLUME 7.6 fl (7.5-11.1); MONO % 6.3 % (3.8-10.2); NEUT % 72.5 % (42.8-82.8); PLATELET COUNT 401 10^3/uL (134-434); RBC 2.92 M/mm3 (3.60-5.2); RDW 13.7 % (11.6-15.6); WHITE BLOOD COUNT 12.7 K/mm3 (4.0-10.0)
[2024-02-05] MEDS: ACETAMINOPHEN 1000 MG/100 ML BAG IVPB ONE (19:06)
[2024-02-05 19:16] LABS: INR 1.11 (0.83-1.09); PROTHROMBIN TIME (PATIENT) 12.5 SEC (9.7-13.0)
[2024-02-05 19:31] LABS: CHLORIDE 101 mmol/L (98-107); POTASSIUM 3.6 mmol/L (3.5-5.1); SODIUM 136 mmol/L (136-145)
[2024-02-05 19:33] LABS: ALBUMIN 2.5 g/dl (3.4-5.0); ANION GAP 7 mmol/L (4-13); BLOOD UREA NITROGEN 13.3 mg/dL (7-18); CALCIUM 8.3 mg/dL (8.5-10.1); CO2 28 mmol/L (21-32); GLUCOSE,RANDOM 92 mg/dL (74-106)
[2024-02-05 19:36] LABS: CREATININE 0.5 mg/dL (0.55-1.3); SGOT/AST 22 U/L (15-37)
[2024-02-05 19:37] LABS: SGPT/ALT < 6 U/L (13-61)
[2024-02-05 19:38] LABS: BILIRUBIN,TOTAL 0.4 mg/dL (0.2-1)
[2024-02-05 19:39] LABS: ALK PHOS 71 U/L (45-117)
[2024-02-05] MEDS ORDERED: ALPRAZolam 0.25 MG TABLET PO PRN (23:19)
[2024-02-06] MEDS: PIPERACILLIN/TAZOB 4.5 GM 4.5 GM in DEXTROSE 5%-WATER 100 ML IVPB ONE (00:52)
[2024-02-06] MEDS ORDERED: ALPRAZolam 0.25 MG TABLET ONE (02:45)
[2024-02-06] MEDS: traZODone HCL 50 MG TABLET (FP) PO ONE (02:48)
[2024-02-06] MEDS ORDERED: traZODone HCL 50 MG TABLET (FP) PO PRN (04:35)
[2024-02-06] MEDS ORDERED: ACETAMINOPHEN 325 MG TABLET (FP) PO PRN (04:37)
[2024-02-06] MEDS: SODIUM CHLORIDE 1,000 ML IV SCH (05:22)
[2024-02-06] MEDS ORDERED: ACETAMINOPHEN 1000 MG/100 ML BAG IVPB PRN ×2 (07:38→07:43)
[2024-02-06] MEDS ORDERED: PIPERACILLIN/TAZOB 3.375 GM 3.375 GM/50 ML BAG IVPB ONE ×2 (08:23→18:14)
[2024-02-06] MEDS: PIPERACILLIN/TAZOB 3.375 GM 3.375 GM in DEXTROSE 5%-WATER - 50 ML IVPB SCH (08:54)
[2024-02-06] MEDS: AMINO ACIDS 4.25%/D5W 1,000 ML IV SCH (11:49)
[2024-02-06 17:25] LABS: BASO % 0.8 % (0-2.0); EOS % 1.1 % (0-4.5); HEMATOCRIT 26.9 % (32.4-45.2); LYMPH % 19.6 % (8-40); MCH 30.9 pg (25.7-33.7); MCHC 33.4 g/dl (32.0-36.0); MEAN CELL VOLUME 92.5 fl (80-96); MEAN PLT VOLUME 7.8 fl (7.5-11.1); MONO % 6.6 % (3.8-10.2); NEUT % 71.9 % (42.8-82.8); PLATELET COUNT 387 10^3/uL (134-434); RBC 2.91 M/mm3 (3.60-5.2); RDW 13.8 % (11.6-15.6); WHITE BLOOD COUNT 9.3 K/mm3 (4.0-10.0)
[2024-02-06 17:38] LABS: INR 1.07 (0.83-1.09); PROTHROMBIN TIME (PATIENT) 12.1 SEC (9.7-13.0)
[2024-02-06 17:49] LABS: CHLORIDE 101 mmol/L (98-107); POTASSIUM 3.4 mmol/L (3.5-5.1); SODIUM 136 mmol/L (136-145)
[2024-02-06 17:52] LABS: CALCIUM 8.4 mg/dL (8.5-10.1)
[2024-02-06 17:53] LABS: ALBUMIN 2.5 g/dl (3.4-5.0); ANION GAP 9 mmol/L (4-13); CO2 26 mmol/L (21-32); GLUCOSE,RANDOM 94 mg/dL (74-106)
[2024-02-06 17:55] LABS: CREATININE 0.5 mg/dL (0.55-1.3); MAGNESIUM 1.7 mg/dL (1.8-2.4); SGOT/AST 17 U/L (15-37); SGPT/ALT < 6 U/L (13-61)
[2024-02-06 17:57] LABS: BILIRUBIN,TOTAL 0.5 mg/dL (0.2-1)
[2024-02-06 17:58] LABS: TOT PROT 5.9 g/dl (6.4-8.2)
[2024-02-06 17:59] LABS: ALK PHOS 66 U/L (45-117)
[2024-02-07] MEDS ORDERED: traZODone HCL 50 MG TABLET (FP) ONE (00:24)
[2024-02-07] MEDS: traZODone HCL 50 MG TABLET (FP) PO PRN (00:29)
[2024-02-07] MEDS ORDERED: PIPERACILLIN/TAZOB 3.375 GM 3.375 GM/50 ML BAG IVPB ONE (03:45)
[2024-02-07 06:24] LABS: BASO % 0.4 % (0-2.0); HEMATOCRIT 25.7 % (32.4-45.2); HEMOGLOBIN 8.8 GM/dL (10.7-15.3); LYMPH % 18.1 % (8-40); MCH 31.7 pg (25.7-33.7); MCHC 34.1 g/dl (32.0-36.0); MONO % 6.8 % (3.8-10.2); NEUT % 73.7 % (42.8-82.8); PLATELET COUNT 384 10^3/uL (134-434); RBC 2.76 M/mm3 (3.60-5.2); RDW 13.7 % (11.6-15.6); WHITE BLOOD COUNT 9.3 K/mm3 (4.0-10.0)
[2024-02-07 06:44] LABS: CHLORIDE 102 mmol/L (98-107); POTASSIUM 3.3 mmol/L (3.5-5.1); SODIUM 137 mmol/L (136-145)
[2024-02-07 06:49] LABS: ALBUMIN 2.2 g/dl (3.4-5.0); ANION GAP 6 mmol/L (4-13); CALCIUM 7.7 mg/dL (8.5-10.1); CO2 29 mmol/L (21-32)
[2024-02-07 06:51] LABS: BLOOD UREA NITROGEN 18.2 mg/dL (7-18); GLUCOSE,RANDOM 132 mg/dL (74-106); MAGNESIUM 1.4 mg/dL (1.8-2.4)
[2024-02-07 06:53] LABS: CREATININE 0.4 mg/dL (0.55-1.3)
[2024-02-07 06:54] LABS: SGOT/AST 14 U/L (15-37)
[2024-02-07 06:55] LABS: ALK PHOS 64 U/L (45-117); BILIRUBIN,TOTAL 0.2 mg/dL (0.2-1); TOT PROT 5.4 g/dl (6.4-8.2)
[2024-02-07 07:10] LABS: SGPT/ALT < 6 U/L (13-61)
[2024-02-07] MEDS: GENTAMICIN 80MG PREMIX BAG IVPB ONE (07:52)
[2024-02-07] MEDS: ceFAZolin SODIUM 1 GM VIAL IVPB ONE (07:52)
[2024-02-07] MEDS ORDERED: ONDANSETRON 4 MG/2 ML VIAL IVPUSH PRN (08:25)
[2024-02-07] MEDS: MAGNESIUM SULFATE IN WATER 2 GM/50 ML IVPB IVPB ONE (10:29)
[2024-02-07] MEDS: POTASSIUM CHLORIDE ORAL LIQUID 20 MEQ/15 ML PO ONE (10:35)
[2024-02-07] MEDS: PIPERACILLIN/TAZOB 3.375 GM 3.375 GM in DEXTROSE 5%-WATER - 50 ML IVPB SCH ×3 (10:51→11:58)
[2024-02-07] MEDS: LACTATED RINGERS SOLUTION 1,000 ML IV SCH (11:13)
[2024-02-07] MEDS: SODIUM CHLORIDE 1,000 ML IV SCH (11:15)
[2024-02-07] MEDS: AMINO ACIDS 4.25%/D5W 1,000 ML IV SCH (11:16)
[2024-02-08] MEDS: traZODone HCL 50 MG TABLET (FP) PO ONE (03:19)
[2024-02-08 09:19] LABS: BASO % 0.6 % (0-2.0); EOS % 0.7 % (0-4.5); HEMOGLOBIN 9.2 GM/dL (10.7-15.3); LYMPH % 24.8 % (8-40); MCH 31.3 pg (25.7-33.7); MCHC 34.1 g/dl (32.0-36.0); MEAN CELL VOLUME 91.8 fl (80-96); MEAN PLT VOLUME 8.2 fl (7.5-11.1); MONO % 7.8 % (3.8-10.2); NEUT % 66.1 % (42.8-82.8); PLATELET COUNT 429 10^3/uL (134-434); RBC 2.94 M/mm3 (3.60-5.2); RDW 13.9 % (11.6-15.6); WHITE BLOOD COUNT 10.7 K/mm3 (4.0-10.0)
[2024-02-08 09:36] LABS: POTASSIUM 3.8 mmol/L (3.5-5.1)
[2024-02-08 09:39] LABS: CALCIUM 8.4 mg/dL (8.5-10.1)
[2024-02-08 09:40] LABS: ALBUMIN 2.4 g/dl (3.4-5.0); MAGNESIUM 1.6 mg/dL (1.8-2.4)
[2024-02-08 09:43] LABS: CREATININE 0.5 mg/dL (0.55-1.3)
[2024-02-08 09:44] LABS: BILIRUBIN,TOTAL 0.2 mg/dL (0.2-1); TOT PROT 5.8 g/dl (6.4-8.2)
[2024-02-08] MEDS: MAGNESIUM 1GM/D5W - 1 GM/100 ML IVPB IVPB ONE (12:24)
[2024-02-08] MEDS: traZODone HCL 50 MG TABLET (FP) PO PRN (21:44)
[2024-02-09 10:16] LABS: BASO % 0.7 % (0-2.0); EOS % 1.8 % (0-4.5); HEMATOCRIT 25.3 % (32.4-45.2); HEMOGLOBIN 8.6 GM/dL (10.7-15.3); LYMPH % 29.5 % (8-40); MCHC 33.9 g/dl (32.0-36.0); MEAN CELL VOLUME 91.5 fl (80-96); MEAN PLT VOLUME 7.7 fl (7.5-11.1); MONO % 9.2 % (3.8-10.2); NEUT % 58.8 % (42.8-82.8); PLATELET COUNT 364 10^3/uL (134-434); RBC 2.76 M/mm3 (3.60-5.2); RDW 13.9 % (11.6-15.6); WHITE BLOOD COUNT 6.9 K/mm3 (4.0-10.0)
[2024-02-09 10:44] LABS: POTASSIUM 3.6 mmol/L (3.5-5.1)
[2024-02-09 10:53] LABS: CALCIUM 8.2 mg/dL (8.5-10.1)
[2024-02-09 10:54] LABS: ALBUMIN 2.3 g/dl (3.4-5.0); BLOOD UREA NITROGEN 10.3 mg/dL (7-18); MAGNESIUM 1.6 mg/dL (1.8-2.4)
[2024-02-09 10:56] LABS: CREATININE 0.5 mg/dL (0.55-1.3)
[2024-02-09 10:57] LABS: BILIRUBIN,TOTAL 0.4 mg/dL (0.2-1)
[2024-02-09 10:58] LABS: TOT PROT 5.8 g/dl (6.4-8.2)
[2024-02-09] MEDS: POLYETHYLENE GLYCOL 3350 255 GM BTL PO ONE (11:09)
[2024-02-09] MEDS: NEOMYCIN SO4 500 MG TABLET PO SCH (12:11)
[2024-02-09] MEDS: metroNIDAZOLE 500 MG TABLET PO SCH (12:11)
[2024-02-09] MEDS: BISACODYL 5 MG TABLET.DR (FP) PO ONE (12:11)
[2024-02-10 09:17] LABS: BASO % 0.6 % (0-2.0); EOS % 0.6 % (0-4.5); HEMATOCRIT 28.4 % (32.4-45.2); HEMOGLOBIN 9.4 GM/dL (10.7-15.3); LYMPH % 18.1 % (8-40); MCH 30.8 pg (25.7-33.7); MEAN CELL VOLUME 93.1 fl (80-96); MEAN PLT VOLUME 7.7 fl (7.5-11.1); MONO % 6.9 % (3.8-10.2); NEUT % 73.8 % (42.8-82.8); PLATELET COUNT 439 10^3/uL (134-434); RBC 3.05 M/mm3 (3.60-5.2); RDW 13.8 % (11.6-15.6); WHITE BLOOD COUNT 11.4 K/mm3 (4.0-10.0)
[2024-02-10 09:45] LABS: POTASSIUM 3.3 mmol/L (3.5-5.1)
[2024-02-10 09:51] LABS: ALBUMIN 2.5 g/dl (3.4-5.0)
[2024-02-10 09:52] LABS: CALCIUM 8.3 mg/dL (8.5-10.1)
[2024-02-10 09:53] LABS: BLOOD UREA NITROGEN 10.2 mg/dL (7-18)
[2024-02-10 09:56] LABS: BILIRUBIN,TOTAL 0.4 mg/dL (0.2-1); CREATININE 0.5 mg/dL (0.55-1.3)
[2024-02-10 09:57] LABS: TOT PROT 6.1 g/dl (6.4-8.2)
[2024-02-10] MEDS: MINERAL OIL ENEMA 133 ML ENEMA RC ONE ×2 (11:19→11:46)
[2024-02-10] MEDS ORDERED: HYDROmorphone HCl 2 MG/ML VIAL ONE (13:27)
[2024-02-10] MEDS ORDERED: ROCURONIUM BROMIDE 50 MG/5 ML SYRINGE ONE ×2 (13:27→15:12)
[2024-02-10] MEDS ORDERED: PROPOFOL 40 ML ONE (13:27)
[2024-02-10] MEDS ORDERED: SUCCINYLCHOLINE CHLORIDE 200 MG/10 ML SYRINGE ONE (13:27)
[2024-02-10] MEDS ORDERED: DEXAMETHASONE SOD PHOSPHATE 4 MG/1 ML VIAL ONE (14:10)
[2024-02-10] MEDS ORDERED: ONDANSETRON 4 MG/2 ML VIAL ONE (14:10)
[2024-02-10] MEDS ORDERED: KETOROLAC TROMETHAMINE 30 MG/1 ML VIAL ONE (14:10)
[2024-02-10] MEDS ORDERED: ACETAMINOPHEN INJECTION 100 ML IVPB ONE (14:12)
[2024-02-10] MEDS ORDERED: HEPARIN NA (PORCINE) 5,000 UNITS/ML 1ML VIAL ONE ×2 (14:16→14:42)
[2024-02-10] MEDS ORDERED: CEFOXITIN SODIUM 1 GM IVPB ONE (14:18)
[2024-02-10] MEDS: cefOXitin SODIUM 1 GM VIAL (RESTRICTED TO ID) IVPB ONE (14:24)
[2024-02-10] MEDS: BUPIVACAINE HCL/PF 0.25% (2.5MG/ML) 10 ML VIAL IJ ONE (14:45)
[2024-02-10] MEDS ORDERED: ALBUMIN HUMAN 5% 500 ML IV SOLUTION IV ONE (15:24)
[2024-02-10] MEDS ORDERED: KCL 20 MEQ PREMIX BAG 20 MEQ/100 ML INFUS.BAG IVPB ONE (15:45)
[2024-02-10 15:54] VITALS: BMI 15.2
[2024-02-10 17:59] LABS: HEMATOCRIT 30.5 % (32.4-45.2); HEMOGLOBIN 10.2 GM/dL (10.7-15.3); MCH 29.8 pg (25.7-33.7); MCHC 33.4 g/dl (32.0-36.0); MEAN CELL VOLUME 89.1 fl (80-96); MEAN PLT VOLUME 7.4 fl (7.5-11.1); PLATELET COUNT 274 10^3/uL (134-434); RBC 3.42 M/mm3 (3.60-5.2); RDW 13.8 % (11.6-15.6); WHITE BLOOD COUNT 16.7 K/mm3 (4.0-10.0)
[2024-02-10] MEDS ORDERED: PIPERACILLIN/TAZOBACTAM 3.375 GM VIAL IVPB ONE (18:25)
[2024-02-10] MEDS ORDERED: ONDANSETRON 4 MG/2 ML VIAL IVPUSH PRN (19:51)
[2024-02-10] MEDS ORDERED: HYDROmorphone HCl 2 MG/ML VIAL IVPB PRN (19:51)
[2024-02-10] MEDS: KCL 10 MEQ IVPB 10 MEQ/100 ML INFUS.BAG IVPB SCH (20:57)
[2024-02-10] MEDS: TRANEXAMIC ACID 1000 MG/10 ML VIAL IVPUSH SCH (20:57)
[2024-02-10] MEDS: LACTATED RINGERS SOLUTION 1,000 ML IV SCH (21:53)
[2024-02-10] MEDS: ACETAMINOPHEN 1000 MG/100 ML BAG IVPB SCH (21:54)
[2024-02-11] MEDS: PIPERACILLIN/TAZOB 3.375 GM 3.375 GM in DEXTROSE 5%-WATER - 50 ML IVPB SCH (02:21)
[2024-02-11 06:35] LABS: HEMATOCRIT 29.9 % (32.4-45.2); HEMOGLOBIN 10.2 GM/dL (10.7-15.3); MCH 30.4 pg (25.7-33.7); MCHC 34.2 g/dl (32.0-36.0); MEAN CELL VOLUME 88.9 fl (80-96); MEAN PLT VOLUME 8.3 fl (7.5-11.1); PLATELET COUNT 401 10^3/uL (134-434); RBC 3.36 M/mm3 (3.60-5.2); RDW 14.8 % (11.6-15.6); WHITE BLOOD COUNT 29.8 K/mm3 (4.0-10.0)
[2024-02-11 06:55] LABS: POTASSIUM 4.1 mmol/L (3.5-5.1)
[2024-02-11 07:00] LABS: ALBUMIN 2.5 g/dl (3.4-5.0); CALCIUM 8.2 mg/dL (8.5-10.1)
[2024-02-11 07:05] LABS: BILIRUBIN,TOTAL 0.7 mg/dL (0.2-1); TOT PROT 4.8 g/dl (6.4-8.2)
[2024-02-11] MEDS: PANTOPRAZOLE SODIUM 40 MG VIAL IVPUSH SCH (10:27)
[2024-02-11] MEDS: AMINO ACIDS 4.25%/D5W 1,000 ML IV SCH (10:27)
[2024-02-11] MEDS: LACTATED RINGERS SOLUTION 1,000 ML IV SCH (10:28)
[2024-02-11 13:00] LABS: ANISOCYTOSIS 2+; MACROCYTOSIS 0
[2024-02-11 13:01] LABS: PLATELET ESTIMATE ADEQUATE
[2024-02-11] MEDS: HYDROmorphone HCL CARPU-JECT 2 MG/1 ML DISP.SYRIN IVPB PRN (18:17)
[2024-02-11] MEDS: MELATONIN 5 MG TABLETS PO SCH (22:55)
[2024-02-12 07:02] LABS: POTASSIUM 3.8 mmol/L (3.5-5.1)
[2024-02-12 07:07] LABS: CALCIUM 8.2 mg/dL (8.5-10.1)
[2024-02-12 07:09] LABS: BLOOD UREA NITROGEN 24.9 mg/dL (7-18); MAGNESIUM 1.3 mg/dL (1.8-2.4)
[2024-02-12 07:11] LABS: CREATININE 0.8 mg/dL (0.55-1.3); PHOSPHOROUS 3.1 mg/dL (2.5-4.9)
[2024-02-12 10:30] LABS: HEMATOCRIT 25.4 % (32.4-45.2); HEMOGLOBIN 8.5 GM/dL (10.7-15.3); MCH 30.1 pg (25.7-33.7); MCHC 33.3 g/dl (32.0-36.0); MEAN CELL VOLUME 90.3 fl (80-96); MEAN PLT VOLUME 8.6 fl (7.5-11.1); PLATELET COUNT 384 10^3/uL (134-434); RBC 2.81 M/mm3 (3.60-5.2); RDW 14.8 % (11.6-15.6); WHITE BLOOD COUNT 21.6 K/mm3 (4.0-10.0)
[2024-02-12 11:30] LABS: ANISOCYTOSIS 2+; MACROCYTOSIS 0
[2024-02-12 11:32] LABS: PLATELET ESTIMATE ADEQUATE
[2024-02-12] MEDS: hydrOXYzine PAMOATE 50 MG CAPSULE (FP) PO ONE (22:42)
[2024-02-13 08:26] LABS: BASO % 0.1 % (0-2.0); EOS % 0.4 % (0-4.5); HEMATOCRIT 21.1 % (32.4-45.2); HEMOGLOBIN 7.2 GM/dL (10.7-15.3); LYMPH % 9.5 % (8-40); MCH 30.3 pg (25.7-33.7); MCHC 34.1 g/dl (32.0-36.0); MEAN CELL VOLUME 88.8 fl (80-96); MEAN PLT VOLUME 7.9 fl (7.5-11.1); PLATELET COUNT 356 10^3/uL (134-434); RBC 2.37 M/mm3 (3.60-5.2); WHITE BLOOD COUNT 15.5 K/mm3 (4.0-10.0)
[2024-02-13 08:37] LABS: CHLORIDE 102 mmol/L (98-107); SODIUM 136 mmol/L (136-145)
[2024-02-13 08:40] LABS: CO2 27 mmol/L (21-32); GLUCOSE,RANDOM 102 mg/dL (74-106); MAGNESIUM 1.1 mg/dL (1.8-2.4)
[2024-02-13 08:43] LABS: CREATININE 0.3 mg/dL (0.55-1.3)
[2024-02-13 08:44] LABS: PHOSPHOROUS 1.5 mg/dL (2.5-4.9)
[2024-02-13 08:52] LABS: ANION GAP 7 mmol/L (4-13); POTASSIUM 2.9 mmol/L (3.5-5.1)
[2024-02-13] MEDS: KCL 10 MEQ IVPB 10 MEQ/100 ML INFUS.BAG IVPB SCH (10:20)
[2024-02-13] MEDS: QUEtiapine FUMARATE 25 MG TABLET PO PRN (21:23)
[2024-02-14 09:23] LABS: BASO % 0.1 % (0-2.0); EOS % 0.6 % (0-4.5); HEMATOCRIT 21.3 % (32.4-45.2); HEMOGLOBIN 7.3 GM/dL (10.7-15.3); MCH 30.5 pg (25.7-33.7); MCHC 34.3 g/dl (32.0-36.0); MEAN PLT VOLUME 7.8 fl (7.5-11.1); MONO % 7.6 % (3.8-10.2); NEUT % 81.7 % (42.8-82.8); PLATELET COUNT 380 10^3/uL (134-434); RDW 14.6 % (11.6-15.6); WHITE BLOOD COUNT 11.6 K/mm3 (4.0-10.0)
[2024-02-14 09:46] LABS: CHLORIDE 99 mmol/L (98-107); SODIUM 136 mmol/L (136-145)
[2024-02-14 09:47] LABS: CALCIUM 7.8 mg/dL (8.5-10.1); CO2 29 mmol/L (21-32); GLUCOSE,RANDOM 86 mg/dL (74-106)
[2024-02-14 09:48] LABS: BLOOD UREA NITROGEN 11.2 mg/dL (7-18); MAGNESIUM 1.1 mg/dL (1.8-2.4)
[2024-02-14 09:51] LABS: CREATININE 0.3 mg/dL (0.55-1.3)
[2024-02-14 10:08] LABS: ANION GAP 8 mmol/L (4-13); POTASSIUM 2.8 mmol/L (3.5-5.1)
[2024-02-14] MEDS: ENOXAPARIN NA (PORCINE) 40 MG/0.4 ML DISP.SYRIN SQ SCH (14:38)
[2024-02-14] MEDS: PSYLLIUM 5.85 GM PACKET PO SCH (14:39)
[2024-02-14] MEDS: MAGNESIUM 2GM/50ML STERILE WATER IVPB IVPB ONE (15:07)
[2024-02-14] MEDS: POTASSIUM CHLORIDE ORAL LIQUID 20 MEQ/15 ML PO SCH (15:23)
[2024-02-14] MEDS: KCL 10 MEQ IVPB 10 MEQ/100 ML INFUS.BAG IVPB SCH (16:00)
[2024-02-14] MEDS: POTASSIUM PHOSPHATE 30 MM in SODIUM CHLORIDE 500 ML IVPB ONE (19:18)
[2024-02-14] MEDS: MELATONIN 5 MG TABLETS PO PRN (21:22)
[2024-02-15 08:42] LABS: BASO % 0.2 % (0-2.0); EOS % 1.2 % (0-4.5); HEMATOCRIT 22.8 % (32.4-45.2); HEMOGLOBIN 7.8 GM/dL (10.7-15.3); MCH 30.8 pg (25.7-33.7); MCHC 34.2 g/dl (32.0-36.0); MEAN CELL VOLUME 90.1 fl (80-96); MEAN PLT VOLUME 7.8 fl (7.5-11.1); NEUT % 73.6 % (42.8-82.8); PLATELET COUNT 338 10^3/uL (134-434); RBC 2.53 M/mm3 (3.60-5.2); RDW 14.5 % (11.6-15.6); WHITE BLOOD COUNT 9.9 K/mm3 (4.0-10.0)
[2024-02-15 09:02] LABS: POTASSIUM 4.6 mmol/L (3.5-5.1)
[2024-02-15 09:09] LABS: CALCIUM 7.8 mg/dL (8.5-10.1)
[2024-02-15 09:10] LABS: BLOOD UREA NITROGEN 8.1 mg/dL (7-18); MAGNESIUM 1.6 mg/dL (1.8-2.4)
[2024-02-15 09:13] LABS: CREATININE 0.3 mg/dL (0.55-1.3); PHOSPHOROUS 2.6 mg/dL (2.5-4.9)
[2024-02-16 07:18] LABS: POTASSIUM 4.6 mmol/L (3.5-5.1)
[2024-02-16 07:19] LABS: ALBUMIN 2.2 g/dl (3.4-5.0); BLOOD UREA NITROGEN 6.4 mg/dL (7-18); CALCIUM 8.3 mg/dL (8.5-10.1)
[2024-02-16 07:22] LABS: CREATININE 0.4 mg/dL (0.55-1.3)
[2024-02-16 07:24] LABS: BILIRUBIN,TOTAL 0.6 mg/dL (0.2-1); TOT PROT 5.6 g/dl (6.4-8.2)
[2024-02-16 14:42] VITALS: RESP 18
[2024-02-17] MEDS ORDERED: oxyCODONE HCL 5 MG TABLET PO PRN (07:50)
[2024-02-17] MEDS ORDERED: ACETAMINOPHEN 325 MG TABLET (FP) PO PRN (07:51)
[2024-02-17 08:13] LABS: BASO % 0.4 % (0-2.0); EOS % 1.1 % (0-4.5); HEMATOCRIT 25.7 % (32.4-45.2); HEMOGLOBIN 8.8 GM/dL (10.7-15.3); LYMPH % 16.3 % (8-40); MCH 31.4 pg (25.7-33.7); MCHC 34.1 g/dl (32.0-36.0); MEAN CELL VOLUME 91.9 fl (80-96); MEAN PLT VOLUME 8.1 fl (7.5-11.1); MONO % 9.1 % (3.8-10.2); NEUT % 73.1 % (42.8-82.8); PLATELET COUNT 434 10^3/uL (134-434); RBC 2.79 M/mm3 (3.60-5.2); RDW 14.9 % (11.6-15.6); WHITE BLOOD COUNT 10.3 K/mm3 (4.0-10.0)
[2024-02-17 08:35] LABS: POTASSIUM 5.2 mmol/L (3.5-5.1)
[2024-02-17 08:41] LABS: CALCIUM 8.5 mg/dL (8.5-10.1)
[2024-02-17 08:44] LABS: ALBUMIN 2.2 g/dl (3.4-5.0); BLOOD UREA NITROGEN 9.2 mg/dL (7-18); CREATININE 0.5 mg/dL (0.55-1.3)
[2024-02-17 08:46] LABS: BILIRUBIN,TOTAL 0.4 mg/dL (0.2-1); TOT PROT 5.8 g/dl (6.4-8.2)
[2024-02-17] MEDS: PSYLLIUM 5.85 GM PACKET PO SCH (10:30)
[2024-02-17 10:53] LABS: MAGNESIUM 1.4 mg/dL (1.8-2.4)
[2024-02-17 10:56] LABS: PHOSPHOROUS 3.8 mg/dL (2.5-4.9)
[2024-02-17] MEDS: MAGNESIUM SULF 50% (8.12 MEQ/2 ML-1 GM VIAL) IVPB ONE (12:50)
[2024-02-17 13:08] LABS: RETICULOCYTES 3.58 % (0.5-1.5)
[2024-02-17] MEDS: MELATONIN 5 MG TABLETS PO PRN (22:57)
[2024-02-18 09:18] LABS: HEMATOCRIT 25.2 % (32.4-45.2); HEMOGLOBIN 8.4 GM/dL (10.7-15.3); MCH 30.4 pg (25.7-33.7); MCHC 33.2 g/dl (32.0-36.0); MEAN CELL VOLUME 91.3 fl (80-96); MEAN PLT VOLUME 7.7 fl (7.5-11.1); PLATELET COUNT 451 10^3/uL (134-434); RBC 2.76 M/mm3 (3.60-5.2); RDW 14.7 % (11.6-15.6); WHITE BLOOD COUNT 12.2 K/mm3 (4.0-10.0)
[2024-02-18 09:41] LABS: POTASSIUM 4.2 mmol/L (3.5-5.1)
[2024-02-18 09:46] LABS: BLOOD UREA NITROGEN 17.3 mg/dL (7-18); CALCIUM 8.5 mg/dL (8.5-10.1)
[2024-02-18 09:47] LABS: ALBUMIN 2.3 g/dl (3.4-5.0); MAGNESIUM 1.5 mg/dL (1.8-2.4)
[2024-02-18 09:50] LABS: CREATININE 0.4 mg/dL (0.55-1.3); PHOSPHOROUS 3.1 mg/dL (2.5-4.9)
[2024-02-18 09:51] LABS: BILIRUBIN,TOTAL 0.3 mg/dL (0.2-1); TOT PROT 5.7 g/dl (6.4-8.2)
[2024-02-18] MEDS: PANTOPRAZOLE SODIUM 40 MG VIAL IVPUSH SCH (09:51)
[2024-02-18] MEDS: MAGNESIUM SULF 50% (8.12 MEQ/2 ML-1 GM VIAL) IVPB ONE (15:46)
[2024-02-19 06:50] LABS: BASO % 0.5 % (0-2.0); EOS % 1.2 % (0-4.5); HEMATOCRIT 23.6 % (32.4-45.2); LYMPH % 14.5 % (8-40); MCH 30.8 pg (25.7-33.7); MCHC 33.8 g/dl (32.0-36.0); MEAN PLT VOLUME 7.9 fl (7.5-11.1); MONO % 7.9 % (3.8-10.2); NEUT % 75.9 % (42.8-82.8); PLATELET COUNT 498 10^3/uL (134-434); RBC 2.59 M/mm3 (3.60-5.2); RDW 14.8 % (11.6-15.6); WHITE BLOOD COUNT 10.5 K/mm3 (4.0-10.0)
[2024-02-19 07:09] LABS: POTASSIUM 4.1 mmol/L (3.5-5.1)
[2024-02-19 07:11] LABS: CALCIUM 7.8 mg/dL (8.5-10.1)
[2024-02-19 07:12] LABS: ALBUMIN 2.2 g/dl (3.4-5.0); BLOOD UREA NITROGEN 15.7 mg/dL (7-18); MAGNESIUM 1.7 mg/dL (1.8-2.4)
[2024-02-19 07:15] LABS: CREATININE 0.3 mg/dL (0.55-1.3); PHOSPHOROUS 3.2 mg/dL (2.5-4.9)
[2024-02-19 07:16] LABS: BILIRUBIN,TOTAL 0.3 mg/dL (0.2-1)
[2024-02-19 07:17] LABS: TOT PROT 5.6 g/dl (6.4-8.2)
[2024-02-19 14:13] VITALS: BP 114/66; PULSE 73; TEMP 98.4
== END 2024-02-19 17:08 | disposition home or self-care (01) | DRG 329 ==
LOC: JER 15:26 → JERBED 21:49 → J6S 02-07 11:20 → J4S 02-10 21:40
PROVIDERS: ADMIT Internal Medicine; ATTEND Internal Medicine
PROC: 0T778DZ Dilation of Left Ureter with Intraluminal Device, Via Natural or Artificial Opening Endoscopic (ICD-10-PCS; 2024-02-07)
PROC: BT1FZZZ Fluoroscopy of Left Kidney, Ureter and Bladder (ICD-10-PCS; 2024-02-07)
PROC: 0TC78ZZ Extirpation of Matter from Left Ureter, Via Natural or Artificial Opening Endoscopic (ICD-10-PCS; 2024-02-07)
PROC: 0DTN0ZZ Resection of Sigmoid Colon, Open Approach (ICD-10-PCS; 2024-02-10)
PROC: 0DT80ZZ Resection of Small Intestine, Open Approach (ICD-10-PCS; 2024-02-10)
PROC: 0W9J3ZZ Drainage of Pelvic Cavity, Percutaneous Approach (ICD-10-PCS; 2024-02-10)
PROC: 0DJD8ZZ Inspection of Lower Intestinal Tract, Via Natural or Artificial Opening Endoscopic (ICD-10-PCS; 2024-02-10)
PROC: 0DJD8ZZ Inspection of Lower Intestinal Tract, Via Natural or Artificial Opening Endoscopic (ICD-10-PCS; 2024-02-10)
PROC: 30233N1 Transfusion of Nonautologous Red Blood Cells into Peripheral Vein, Percutaneous Approach (ICD-10-PCS; 2024-02-10)
PROC: 0D1L0Z4 Bypass Transverse Colon to Cutaneous, Open Approach (ICD-10-PCS; principal; 2024-02-10 15:15)
PROC: 0DNE0ZZ Release Large Intestine, Open Approach (ICD-10-PCS; 2024-02-10 15:15)
DX: K57.20 Diverticulitis of large intestine with perforation and abscess without bleeding (principal); E43 Unspecified severe protein-calorie malnutrition; D62 Acute posthemorrhagic anemia; Z68.1 Body mass index [BMI] 19.9 or less, adult; N13.1 Hydronephrosis with ureteral stricture, not elsewhere classified; R64 Cachexia; N13.30 Unspecified hydronephrosis; N20.1 Calculus of ureter; T85.628A Displacement of other specified internal prosthetic devices, implants and grafts, initial encounter; S80.212A Abrasion, left knee, initial encounter; S80.211A Abrasion, right knee, initial encounter; W01.0XXA Fall on same level from slipping, tripping and stumbling without subsequent striking against object, initial encounter; Y93.89 Activity, other specified; Y92.230 Patient room in hospital as the place of occurrence of the external cause; Y99.8 Other external cause status; Y83.8 Other surgical procedures as the cause of abnormal reaction of the patient, or of later complication, without mention of misadventure at the time of the procedure; Z53.31 Laparoscopic surgical procedure converted to open procedure; F17.200 Nicotine dependence, unspecified, uncomplicated; I10 Essential (primary) hypertension; E78.5 Hyperlipidemia, unspecified; D64.9 Anemia, unspecified; F32.A Depression, unspecified; F41.9 Anxiety disorder, unspecified; K64.8 Other hemorrhoids
CPT/HCPCS: 36415; 36430; 70450-TC; 74019-TC-FY; 74177-TC; 74178-TC; 76000-TC-FY; 80048; 80053; 82728; 83540; 83550; 83735; 84100; 84466; 85025; 85027; 85045; 85610; 85651; 85730; 86140; 86301; 86850; 86900; 86901; 86922; 87040; 87086; 88305-TC; 88307-TC; 93005; 93010; 94010; 94760; 97116-GP; 97161-GP; 99285-25; C1758; C2617; J0131; J1644; P9058; Q9967

== ENCOUNTER 2024-05-04 04:35 | Day surgery (SDC) | payer OTHER ==
[2024-04-28 11:59] VITALS: BMI 14.1
[2024-05-04 09:46] VITALS: RESP 18; TEMP 97.5
[2024-05-04 12:29] VITALS: BP 138/72; PULSE 58
== END 2024-05-04 12:40 | disposition home or self-care (01) ==
LOC: JASU-ENDO 04:35
PROVIDERS: ATTEND Internal Medicine Gastroenterology
PROC: 3E0H8KZ Introduction of Other Diagnostic Substance into Lower GI, Via Natural or Artificial Opening Endoscopic (ICD-10-PCS; 2024-05-04)
PROC: 0DBK8ZX Excision of Ascending Colon, Via Natural or Artificial Opening Endoscopic, Diagnostic (ICD-10-PCS; principal; 2024-05-04 10:00)
DX: Z12.11 Encounter for screening for malignant neoplasm of colon (principal); D12.0 Benign neoplasm of cecum; Z01.818 Encounter for other preprocedural examination; K63.5 Polyp of colon; K57.30 Diverticulosis of large intestine without perforation or abscess without bleeding; K64.8 Other hemorrhoids; Z93.3 Colostomy status
CPT/HCPCS: 88305-TC

== ENCOUNTER 2024-06-15 05:16 | Inpatient (IN) | payer OTHER ==
[2024-06-12 15:18] VITALS: BMI 15.4
[2024-06-15] MEDS: BUPIVACAINE HCL/PF 0.25% (2.5MG/ML) 10 ML VIAL IJ ONE
[2024-06-15] MEDS ORDERED: ceFAZolin SODIUM 1 GM VIAL ONE (07:32)
[2024-06-15] MEDS ORDERED: LIDOCAINE HCL/PF 2% SDV 5ML VIAL ONE (07:32)
[2024-06-15] MEDS ORDERED: DEXAMETHASONE SOD PHOSPHATE 4 MG/1 ML VIAL ONE (07:32)
[2024-06-15] MEDS ORDERED: ONDANSETRON 4 MG/2 ML VIAL ONE (07:32)
[2024-06-15] MEDS ORDERED: PROPOFOL 80 ML ONE (07:33)
[2024-06-15] MEDS ORDERED: MIDAZOLAM HCL 2 MG/2 ML SINGLE DOSE VIAL ONE (07:33)
[2024-06-15] MEDS ORDERED: ROCURONIUM BROMIDE 50 MG/5 ML SYRINGE ONE (07:33)
[2024-06-15] MEDS ORDERED: HEPARIN NA (PORCINE) 5,000 UNITS/ML 1ML VIAL ONE (07:37)
[2024-06-15] MEDS ORDERED: BUPIVACAINE HCL/PF 0.25% (2.5MG/ML) 10 ML VIAL ONE (07:37)
[2024-06-15] MEDS ORDERED: INDOCYANINE GREEN 25 MG/10 ML VIAL IVPUSH ONE (07:37)
[2024-06-15] MEDS ORDERED: CEFOXITIN SODIUM 2 GM IVPB ONE (07:37)
[2024-06-15] MEDS: HEPARIN NA (PORCINE) 5,000 UNITS/ML 1ML VIAL SQ ONE (08:30)
[2024-06-15] MEDS: cefOXitin SODIUM 2 GM VIAL (RESTRICTED TO ID) IVPB ONE (08:41)
[2024-06-15] MEDS ORDERED: SUGAMMADEX SODIUM 200 MG/2 ML VIAL ONE ×2 (09:24→10:39)
[2024-06-15] MEDS ORDERED: ONDANSETRON 4 MG/2 ML VIAL IVPUSH PRN ×2 (11:09→14:00)
[2024-06-15] MEDS: LACTATED RINGERS SOLUTION 1,000 ML IV SCH (11:22)
[2024-06-15] MEDS ORDERED: KETOROLAC TROMETHAMINE 15 MG/ML VIAL IVPUSH PRN (18:00)
[2024-06-15] MEDS: CEFOXITIN SODIUM/DEXTROSE,ISO 1 GM/50 ML BAG IVPB SCH (18:55)
[2024-06-15] MEDS: ACETAMINOPHEN 500 MG TABLET (FP) PO SCH (18:56)
[2024-06-15] MEDS: HEPARIN NA (PORCINE) 5,000 UNITS/ML 1ML VIAL SQ SCH (21:05)
[2024-06-15] MEDS: MELATONIN 5 MG TABLETS PO PRN (22:22)
[2024-06-15] MEDS: oxyCODONE HCL 5 MG TABLET PO PRN (22:22)
[2024-06-16 09:06] LABS: BASO % 0.2 % (0-2.0); EOS % 0.3 % (0-4.5); HEMATOCRIT 31.8 % (32.4-45.2); HEMOGLOBIN 11.3 GM/dL (10.7-15.3); LYMPH % 21.2 % (8-40); MCH 33.2 pg (25.7-33.7); MCHC 35.4 g/dl (32.0-36.0); MEAN CELL VOLUME 93.7 fl (80-96); MEAN PLT VOLUME 7.8 fl (7.5-11.1); MONO % 8.1 % (3.8-10.2); NEUT % 70.2 % (42.8-82.8); PLATELET COUNT 235 10^3/uL (134-434); RDW 13.2 % (11.6-15.6); WHITE BLOOD COUNT 9.8 K/mm3 (4.0-10.0)
[2024-06-16 09:19] LABS: POTASSIUM 4.2 mmol/L (3.5-5.1)
[2024-06-16 09:24] LABS: CALCIUM 8.7 mg/dL (8.5-10.1)
[2024-06-16 09:25] LABS: BLOOD UREA NITROGEN 23.3 mg/dL (7-18)
[2024-06-16 09:29] LABS: CREATININE 0.8 mg/dL (0.55-1.3)
[2024-06-17 09:35] LABS: BASO % 0.8 % (0-2.0); EOS % 1.3 % (0-4.5); HEMATOCRIT 34.9 % (32.4-45.2); HEMOGLOBIN 11.7 GM/dL (10.7-15.3); LYMPH % 20.4 % (8-40); MCH 32.3 pg (25.7-33.7); MCHC 33.4 g/dl (32.0-36.0); MEAN CELL VOLUME 96.7 fl (80-96); MEAN PLT VOLUME 8.5 fl (7.5-11.1); MONO % 9.3 % (3.8-10.2); NEUT % 68.2 % (42.8-82.8); PLATELET COUNT 236 10^3/uL (134-434); RBC 3.61 M/mm3 (3.60-5.2); RDW 12.9 % (11.6-15.6); WHITE BLOOD COUNT 10.7 K/mm3 (4.0-10.0)
[2024-06-17 09:39] LABS: POTASSIUM 3.7 mmol/L (3.5-5.1)
[2024-06-17 09:42] LABS: BLOOD UREA NITROGEN 20.2 mg/dL (7-18)
[2024-06-17 09:45] LABS: CREATININE 0.6 mg/dL (0.55-1.3)
[2024-06-17] MEDS: MULTIVITAMINS (DAILY MVI) TABLET (FP) PO SCH (10:53)
[2024-06-17 11:01] VITALS: BP 108/61
[2024-06-17 15:38] VITALS: PULSE 67; RESP 18; TEMP 97.9
== END 2024-06-17 16:27 | disposition home or self-care (01) | DRG 329 ==
LOC: J2C 05:16 → J8W 13:00
PROVIDERS: ADMIT Internal Medicine; ATTEND Nurse Practitioner Family
PROC: 0DQL0ZZ Repair Transverse Colon, Open Approach (ICD-10-PCS; 2024-06-15)
PROC: 0DJD8ZZ Inspection of Lower Intestinal Tract, Via Natural or Artificial Opening Endoscopic (ICD-10-PCS; 2024-06-15)
PROC: 0DBL0ZZ Excision of Transverse Colon, Open Approach (ICD-10-PCS; principal; 2024-06-15 08:00)
DX: Z43.3 Encounter for attention to colostomy (principal); E43 Unspecified severe protein-calorie malnutrition; Z68.1 Body mass index [BMI] 19.9 or less, adult; K57.80 Diverticulitis of intestine, part unspecified, with perforation and abscess without bleeding
CPT/HCPCS: 36415; 80048; 85025; 86140; 86850; 86900; 86901; 87481; 87635; 88304-TC; 94760; 97116-GP; 97161-GP; J1644